=== PATIENT | male | born 1970 | race Caucasian/White ===

== ENCOUNTER 2021-02-23 09:08 | Emergency (ER) | payer OTHER, BC ==
[~2021-02-23] VITALS: Ht 182.9 cm; Wt 100.0 kg
[2021-02-23 12:47] VITALS: BP 156/97
[2021-02-23] MEDS ORDERED: OMNI-PAC300 MG PO (12:56)
== END 2021-02-23 12:47 | disposition home or self-care (01) | DRG 605 ==
LOC: ED 09:08
PROC: 0HQGXZZ Repair Left Hand Skin, External Approach (ICD-10-PCS; principal; 2021-02-23)
DX: S61.215A Laceration without foreign body of left ring finger without damage to nail, initial encounter (principal); W23.0XXA Caught, crushed, jammed, or pinched between moving objects, initial encounter; Y92.89 Other specified places as the place of occurrence of the external cause; Y99.0 Civilian activity done for income or pay

== ENCOUNTER 2021-12-18 16:55 | Emergency (ER) | payer OTHER, BC ==
[~2021-12-18] VITALS: Ht 182.9 cm; Wt 105.0 kg
[2021-12-18] VITALS (7 sets, daily range): BP systolic 138–150; BP diastolic 92–100
[~2021-12-18 16:55] MED LIST: OMNI-PAC300 MG PO
== END 2021-12-18 18:29 | disposition home or self-care (01) | DRG 605 ==
LOC: ED 16:55
DX: S20.412A Abrasion of left back wall of thorax, initial encounter (principal); S20.411A Abrasion of right back wall of thorax, initial encounter; S40.812A Abrasion of left upper arm, initial encounter; W17.89XA Other fall from one level to another, initial encounter; Y99.0 Civilian activity done for income or pay